=== PATIENT | male | born 1990 | race Caucasian/White ===

== ENCOUNTER 2019-01-26 22:49 | Emergency (ER) | payer SELFPAY ==
[~2019-01-26] VITALS: Ht 165.1 cm; Wt 77.0 kg
[2019-01-27] MEDS ORDERED: CHLORPROMAZINE HCL 25MG/1ML AMP IM ONE (00:45)
[2019-01-27 02:00] VITALS: BP 103/49
== END 2019-01-27 02:30 | disposition home or self-care (01) ==
LOC: ER 23:53
DX: R06.6 Hiccough (principal); Z90.89 Acquired absence of other organs
CPT/HCPCS: 96372; 99283; J3230; Z7610